=== PATIENT | male | born 1945 | race Caucasian/White ===

== ENCOUNTER 2020-04-25 14:08 | Emergency (ER) | payer MEDICARE, OTHER ==
--- NOTE | 2020-04-25 14:26 | EDM.PDOC ---
ED HPI GENERAL MEDICAL PROBLEM - General Chief Complaint: Trauma Stated Complaint: FELL ABOUT 10 TEN FEET Time Seen by Provider: 04/25/20 14:21 Source of Information: Reports: Patient, EMS, RN Notes Reviewed History Limitations: Reports: No Limitations - History of Present Illness INITIAL COMMENTS - FREE TEXT/NARRATIVE: 75-year-old gentleman presents emergency department today following a fall off scaffolding, estimated 6 foot fall he missed the platform fell off to the side landed predominantly on his left shoulder and neck area he is complaining of neck pain only. He denies any loss of consciousness can recall all details of the event can recall his past medical history which is minimal to glaucoma last meal was early this morning with a piece of cake. Declines pain medication - Related Data Allergies Allergy/AdvReac Type Severity Reaction Status Date / Time Penicillins Allergy Cannot Verified 04/25/20 14:28 Remember Home Meds: Home Meds NK [No Known Home Meds] 04/25/20 [History] Past Medical History HEENT History: Reports: Glaucoma Social & Family History - Tobacco Use Smoking Status *Q: Former Smoker Review of Systems - Review of Systems Review Of Systems: See Below Constitutional: Reports: No Symptoms Eyes: Reports: No Symptoms Ears: Reports: No Symptoms Nose: Reports: No Symptoms Mouth/Throat: Reports: No Symptoms Respiratory: Reports: No Symptoms Cardiovascular: Reports: No Symptoms GI/Abdominal: Reports: No Symptoms Genitourinary: Reports: No Symptoms Musculoskeletal: Reports: Neck Pain. Denies: Shoulder Pain Skin: Reports: Bruising Neurological: Reports: No Symptoms ED EXAM, GENERAL - Physical Exam Exam: See Below Free Text/Narrative:: Primary survey GCS 15 airways open patent and clear lungs are clear to auscultation bilaterally cardiovascular demonstrates regular rate and rhythm S1- S2. Secondary survey General: Male, not in any distress GCS 15, alert and oriented x3 HEENT: head is atraumatic normocephalic, eyes pupils equal round reactive to light, sclera clear no conjunctivitis appreciated. Ears tympanic membranes clear and logan landmarks and light reflex are present bilaterally canals are clear. Nose no septal deviation, nares are clear, no blood present. Mouth mucosa is moist and pink no erythema or exudate noted in soft palate, tongue is midline uvula is midline, dentition is intact. Positive posterior midline C-spine tenderness NO evidence of intoxication GCS > 14 No focal neurological deficit NO distracting injury C-collar in place Lungs: clear to auscultation bilaterally with symmetrical respirations, no adventitious noise appreciated. CV: Regular rate and rhythm S1 and S2 appreciated no murmurs rubs or gallops noted. Chest there is no tenderness to palpation Abdomen: Soft, nontender, no palpable masses or organomegaly appreciated, no distention no guarding bowel sounds are present, [scars ]. Neuro: Alert orientated x3 extraocular eye movements intact pupils equal round reactive to light tongue is midline uvula is midline can smile symmetrically no difficulty with phonation Skin: Warm and dry abrasion appreciated on left grewal Extremities: No lower extremity edema appreciated, pedal pulse is +2. No tenderness shoulders elbows wrists bilaterally pelvic rocks is negative no tenderness knees ankles bilaterally, Back exam no tenderness spinally or spinally thoracic lumbar region Course - Orders/Labs/Meds Meds: Medications Discontinued Medications Generic Name Dose Route Start Last Admin Trade Name Freq PRN Reason Stop Dose Admin Ketorolac Tromethamine 30 mg 04/25/20 15:17 Toradol IVPUSH 04/25/20 15:18 ONETIME ONE Departure - Departure Time of Disposition: 15:18 Disposition: Home, Self-Care 01 Condition: Fair Clinical Impression: Neck strain Qualifiers: Encounter type: initial encounter Qualified Code(s): S16.1XXA - Strain of muscle, fascia and tendon at neck level, initial encounter Fall Qualifiers: Encounter type: initial encounter Qualified Code(s): W19.XXXA - Unspecified fall, initial encounter - Discharge Information Instructions: Neck Contusion Referrals: PCP,None [Primary Care Provider] - Forms: ED Department Discharge Additional Instructions: Use Tylenol or Motrin as needed for pain control, follow-up with primary care as needed - Assessment/Plan Plan: Assessment Acuity = acute Site and laterality = cervical sprain Etiology = secondary to trauma Manifestations = none Location of injury = Home Lab values = CT scan of the neck shows no acute process Plan He required no pain medications while in the emergency department no change in GCS. After removing the c-collar he was able to demonstrate full range of motion without difficulty plan is discharged home Tylenol or Motrin as needed for pain control, follow-up with primary care as needed This note was dictated using [employer] voice recognition software please call with any questions on syntax or grammar.
--- NOTE | 2020-04-25 15:04 | CT ---
Cervical Spine wo Cont CLINICAL HISTORY: Fall, pain TECHNIQUE: Multiple CT sections were taken through the cervical spine in the transaxial projection. Coronal and sagittal views were reconstructed. Images were viewed at bone as well as soft tissue windows on a digital workstation. Auto dosage reduction and iterative reconstruction techniques employed. FINDINGS: Sagittal reconstruction images show cervical vertebral configuration to be normal throughout. Alignment is maintained. There is some disc space narrowing with a company spondylosis at multiple levels. This is most notable at C5-6. Spinatus and odontoid processes appear intact Axial images show some facet spurring on the right at C2-3 causing some mild neural foraminal encroachment. There is also uncovertebral joint spurring at multiple levels. This causes neural foraminal encroachment bilaterally at C3-4 and on the left at C4-5. This also seen on the left at C5-6. IMPRESSION: No fracture or significant subluxation Diffuse degenerative disc changes most notable at C5-6 Facet osteoarthritis and uncovertebral joint spurring causing multiple levels of neural foraminal encroachment described above
[2020-04-25] MEDS ORDERED: Ketorolac 30 MG/ML SDV IVPUSH ONE (15:17)
[2020-04-25] MEDS ORDERED: Ketorolac 30 MG/ML SDV ONE (15:25)
[2020-04-25] MEDS ORDERED: Sodium Chloride 0.9% 1,000 ML IV SCH (15:45)
[2020-04-25] MEDS ORDERED: Sodium Chloride 0.9% 10 ML Syringe FLUSH ONE (15:48)
[2020-04-25] MEDS ORDERED: Iopamidol 612 MG/ML 100 ML Bottle IV PRN (15:48)
[2020-04-25] MEDS ORDERED: Sodium Chloride 0.9% 75 ML IV SCH (16:00)
--- NOTE | 2020-04-25 17:28 | CRLCT ---
INDICATION: Fall, rib pain TECHNIQUE: Axial images were obtained from the thoracic inlet to the diaphragm. Reformats: Coronal and sagittal IV Contrast: 100 cc Isovue-300 COMPARISON: None. FINDINGS: Mediastinum: Thyroid gland is unremarkable. Subcentimeter mediastinal lymph nodes. Coronary atherosclerosis. Thoracic aorta normal in caliber. Lungs and Pleural Space: No pneumothorax or pleural effusion. Bilateral pulmonary nodules, largest in the right upper lobe measuring 10 millimeters (3, 41) with slight spiculation to the pleural margin. Chest wall: No masses. Upper abdomen: Normal. Bones: Superior endplate fracture T11 with loss of height less than 25 percent (series 7, image 61). IMPRESSION: 1. Compression-type fracture at T11 with loss of height less than 25 percent. This is classified as an AO spine A1 fracture. 2. Bilateral pulmonary nodules, largest measuring 10 millimeters in the right upper lobe. This nodule is considered suspicious with some spiculation extending to the adjacent pleural margin. Considering its appearance, PET-CT suggested for further characterization. Please note that all CT scans at this facility use dose modulation, iterative reconstruction, and/or weight-based dosing when appropriate to reduce radiation dose to as low as reasonably achievable. Dictated by Aldair Braxton MD @ Apr 25 2020 4:57PM Signed by Dr. Aldair Braxton @ Apr 25 2020 5:25PM
== END 2020-04-25 17:46 | disposition home or self-care (01) ==
LOC: JP.ED 14:08
DX: S16.1XXA Strain of muscle, fascia and tendon at neck level, initial encounter (principal); Z88.0 Allergy status to penicillin; Z87.891 Personal history of nicotine dependence; W17.89XA Other fall from one level to another, initial encounter
CPT/HCPCS: 36415; 71260; 72125; 80048; 96361; 96374; 99284; J1885; J7030; J7050; Q9967